=== PATIENT | female | born 1960 | race Caucasian/White ===

== ENCOUNTER 2021-03-20 19:49 | Inpatient (IN) | payer OTHER ==
[~2021-03-20] VITALS: Ht 167.6 cm; Wt 80.0 kg
[~2021-03-20 19:49] MED LIST: ALLO100T30 PO; AMLO-150 PO; ASPI81TA45 PO; LISI-167 PO; PRED10TA14 PO
--- NOTE | 2021-03-20 20:06 | NUR ---
pt bib [facility] for GLF yesterday and several today. pt is restless and claims it from restless leg sydrome. pt denies drug use at this time. pt has multiple bruises on her arms and legs at different stages of healing, pt also has an abcess on her left upper thigh. pt A&O to person and place, unable to get a good history from her. pt in gown, resting on gurney, and placed on continuous monitoring.
[2021-03-20] MEDS ORDERED: LORazepam 2 MG/ML, 1ML ONE ×2 (20:27→22:27)
[2021-03-20] MEDS ORDERED: LORazepam 2 MG/ML, 1ML IVPush ONE ×2 (20:30→22:30)
[2021-03-20] MEDS ORDERED: SODIUM CHLORIDE 0.9% 1,000ML IVBOLUS ONE ×2 (20:30→22:00)
[2021-03-20 20:45] LABS: BASOPHILS % (AUTO) 0 % (0-1); EOSINOPHILS % (AUTO) 0 % (1-7); LYMPHOCYTES % (AUTO) 9 % (22-44); MEAN CORPUSCULAR HEMOGLOBIN 28.5 pg (27.0-34.8); MEAN CORPUSCULAR HGB CONC 32.5 g/dL (32.4-35.8); MEAN PLATELET VOLUME 9.6 fL (7.4-10.4); MONOCYTES % (AUTO) 4 % (2-9); NEUTROPHILS % (AUTO) 87 % (42-75); PLATELET COUNT 166 x10^3/uL (130-400); RED BLOOD COUNT 4.22 x10^6/uL (3.82-5.3); RED CELL DISTRIBUTION WIDTH 17.5 % (9.6-15.2)
--- NOTE | 2021-03-20 20:50 | NUR ---
pt straight cathed per ERP for drug screen, due to pt's incontinence. pt tolerated procedure well. sitter at bedside, to help keep pt in bed due to pt's restlessness.
[2021-03-20 20:53] LABS: ALANINE AMINOTRANSFERASE 21 U/L (12-78); ANION GAP 10 mmol/L (5-15); CALCIUM 8.9 mg/dL (8.5-10.1); CHLORIDE 106 mmol/L (98-107); CREATININE 2.26 mg/dL (0.55-1.02)
[2021-03-20 21:03] LABS: ALKALINE PHOSPHATASE 78 U/L (45-117); BILIRUBIN,TOTAL 0.4 mg/dL (0.2-1.0); TOTAL PROTEIN 7.8 g/dL (6.4-8.2)
[2021-03-20 21:06] LABS: AMPHETAMINE SCREEN, URINE Negative (Negative); BARBITURATE SCREEN, URINE Negative (Negative); BENZODIAZEPINE SCREEN, URINE Negative (Negative); CANNABINOID SCREEN, URINE Negative (Negative); COCAINE SCREEN, URINE Negative (Negative); METHADONE SCREEN, URINE Negative (Negative); OPIATE SCREEN, URINE Negative (Negative)
[2021-03-20] MEDS ORDERED: MIDAZOLAM 1 MG/ML, 2ML ONE (21:26)
[2021-03-20] MEDS ORDERED: MIDAZOLAM 1 MG/ML, 2ML IVPush ONE (21:30)
--- NOTE | 2021-03-20 22:20 | NUR ---
pt still restless on the gureny, pt denies needs at this time.
[2021-03-20] MEDS ORDERED: HALOPERIDOL 5 MG/ML ONE (22:27)
[2021-03-20] MEDS ORDERED: THIAMINE 100 MG in SODIUM CHLORIDE 0.9% 50 ML IV ONE (22:30)
[2021-03-20] MEDS ORDERED: HALOPERIDOL 5 MG/ML IM ONE (22:30)
[2021-03-20] MEDS ORDERED: KETAMINE 10 MG/ML, 20ML ONE (23:16)
[2021-03-20] MEDS ORDERED: KETAMINE 10 MG/ML, 20ML IV ONE (23:30)
--- NOTE | 2021-03-20 23:31 | NUR ---
PT TAKEN TO CT, MEDICATED TO HOLD STILL AND BROUGHT BACK. PT PLACED ON CONTINUOUS MONITORING.
[2021-03-20 23:51] LABS: MICROSCOPIC NOT IND
--- NOTE | 2021-03-21 00:30 | NUR ---
PT RESTING ON GURNEY WITH SITTER, DENIES NEEDS AT THIS TIME.
[2021-03-21] MEDS: DIAZEPAM 5 MG TABLET PO SCH ×4 (01:30→19:30)
[2021-03-21] MEDS ORDERED: FOLIC ACID 1 MG TABLET PO ONE (01:30)
[2021-03-21] MEDS ORDERED: LORazepam 2 MG/ML, 1ML IV PRN ×4 (01:30)
--- NOTE | 2021-03-21 01:33 | NUR ---
TALKED WITH HOSPITALIST, ASKING FOR A KEREN VEST FOR PT TO KEEP HER IN BED. PROVIDER AGREED.
--- NOTE | 2021-03-21 01:34 | NUR ---
Pt to be admitted to [facility], room 426-1. Report called to BOAZ VELÁZQUEZ.
[2021-03-21 02:27] VITALS: BP 112/73
[2021-03-21 06:32] VITALS: BP 110/73
[2021-03-21] MEDS ORDERED: GABA800T5 PO (09:24)
[2021-03-21] MEDS ORDERED: CYCL10TA2 PO (09:24)
[2021-03-21] MEDS ORDERED: BUPR150T13 PO (09:24)
[2021-03-21] MEDS ORDERED: FAMO20TA7 PO (09:24)
[2021-03-21] MEDS ORDERED: AMIT100T PO (09:24)
[2021-03-21] MEDS ORDERED: ALLO300T PO (09:24)
[2021-03-21] MEDS ORDERED: ROPI1TAB4 PO (09:24)
[2021-03-21 09:45] LABS: BASOPHILS % (AUTO) 0 % (0-1); EOSINOPHILS % (AUTO) 1 % (1-7); LYMPHOCYTES % (AUTO) 12 % (22-44); MEAN CORPUSCULAR HEMOGLOBIN 28.6 pg (27.0-34.8); MEAN CORPUSCULAR HGB CONC 32.4 g/dL (32.4-35.8); MEAN PLATELET VOLUME 9.7 fL (7.4-10.4); MONOCYTES % (AUTO) 6 % (2-9); NEUTROPHILS % (AUTO) 81 % (42-75); PLATELET COUNT 134 x10^3/uL (130-400); RED CELL DISTRIBUTION WIDTH 17.4 % (9.6-15.2)
[2021-03-21] MEDS: MULTIVITAMINS/MINERALS TABLET PO SCH (09:47)
[2021-03-21 09:57] LABS: ALANINE AMINOTRANSFERASE 20 U/L (12-78); ALBUMIN 3.3 g/dL (3.4-5.0); CALCIUM 8.6 mg/dL (8.5-10.1); CREATININE 1.33 mg/dL (0.55-1.02)
[2021-03-21 09:59] LABS: ALKALINE PHOSPHATASE 69 U/L (45-117); BILIRUBIN,TOTAL 0.7 mg/dL (0.2-1.0); TOTAL PROTEIN 6.6 g/dL (6.4-8.2)
[2021-03-21 10:03] LABS: ANION GAP 7 mmol/L (5-15); CHLORIDE 113 mmol/L (98-107)
[2021-03-21 13:04] VITALS: BP 112/76
[2021-03-21] MEDS: LORazepam 2 MG/ML, 1ML IV PRN ×2 (15:50→23:38)
[2021-03-21] MEDS: BENZONATATE 100 MG CAPSULE PO SCH (20:24)
[2021-03-21] MEDS: ROPINIROLE 1MG TABLET PO SCH (20:24)
[2021-03-21] MEDS: BUPROPION SR 150 MG TABLET PO SCH (20:24)
[2021-03-21] MEDS: FAMOTIDINE 40 MG TABLET PO SCH (20:24)
[2021-03-21 20:35] VITALS: BP 111/75
[2021-03-22 00:56] VITALS: BP 115/71
[2021-03-22] MEDS: DIAZEPAM 5 MG TABLET PO SCH ×4 (01:30→19:29)
[2021-03-22 06:43] LABS: BASOPHILS % (AUTO) 0 % (0-1); EOSINOPHILS % (AUTO) 1 % (1-7); LYMPHOCYTES % (AUTO) 13 % (22-44); MEAN CORPUSCULAR HEMOGLOBIN 28.9 pg (27.0-34.8); MEAN CORPUSCULAR HGB CONC 32.8 g/dL (32.4-35.8); MEAN PLATELET VOLUME 9.7 fL (7.4-10.4); MONOCYTES % (AUTO) 6 % (2-9); NEUTROPHILS % (AUTO) 79 % (42-75); PLATELET COUNT 133 x10^3/uL (130-400); RED CELL DISTRIBUTION WIDTH 17.6 % (9.6-15.2)
[2021-03-22 06:54] LABS: CHLORIDE 109 mmol/L (98-107)
[2021-03-22 07:02] LABS: ANION GAP 7 mmol/L (5-15); CREATININE 0.83 mg/dL (0.55-1.02)
[2021-03-22] MEDS: ROPINIROLE 1MG TABLET PO SCH ×3 (08:36→20:47)
[2021-03-22] MEDS: BUPROPION SR 150 MG TABLET PO SCH ×2 (08:37→20:47)
[2021-03-22] MEDS: ALLOPURINOL 300 MG TABLET PO SCH (08:37)
[2021-03-22] MEDS: BENZONATATE 100 MG CAPSULE PO SCH ×3 (08:37→20:48)
[2021-03-22] MEDS: MULTIVITAMINS/MINERALS TABLET PO SCH (08:37)
[2021-03-22 10:11] VITALS: BP 117/76
[2021-03-22] MEDS: THIAMINE 100 MG in DEXTROSE 5% 50 ML IVPB SCH (10:23)
[2021-03-22 15:23] VITALS: BP 111/75
[2021-03-22] MEDS ORDERED: ACETAMINOPHEN 325 MG TABLET PO PRN (18:30)
[2021-03-22] MEDS: FAMOTIDINE 40 MG TABLET PO SCH (20:47)
[2021-03-22 21:40] VITALS: BP 112/74
[2021-03-23 00:34] VITALS: BP 111/71
[2021-03-23] MEDS: DIAZEPAM 5 MG TABLET PO SCH ×3 (01:21→14:55)
[2021-03-23 04:32] LABS: BASOPHILS % (AUTO) 0 % (0-1); EOSINOPHILS % (AUTO) 2 % (1-7); LYMPHOCYTES % (AUTO) 17 % (22-44); MEAN CORPUSCULAR HEMOGLOBIN 29.1 pg (27.0-34.8); MEAN PLATELET VOLUME 9.4 fL (7.4-10.4); MONOCYTES % (AUTO) 8 % (2-9); NEUTROPHILS % (AUTO) 73 % (42-75); PLATELET COUNT 157 x10^3/uL (130-400); RED BLOOD COUNT 3.82 x10^6/uL (3.82-5.3); RED CELL DISTRIBUTION WIDTH 17.5 % (9.6-15.2)
[2021-03-23 04:37] LABS: ANION GAP 7 mmol/L (5-15); CALCIUM 8.7 mg/dL (8.5-10.1); CHLORIDE 107 mmol/L (98-107); CREATININE 0.81 mg/dL (0.55-1.02)
[2021-03-23 07:45] VITALS: BP 117/78
[2021-03-23] MEDS: THIAMINE 100 MG in DEXTROSE 5% 50 ML IVPB SCH (09:00)
[2021-03-23] MEDS: ALLOPURINOL 300 MG TABLET PO SCH (09:00)
[2021-03-23] MEDS: MULTIVITAMINS/MINERALS TABLET PO SCH (09:00)
[2021-03-23] MEDS: BENZONATATE 100 MG CAPSULE PO SCH ×2 (09:00→14:55)
[2021-03-23] MEDS: BUPROPION SR 150 MG TABLET PO SCH (09:00)
[2021-03-23] MEDS: ROPINIROLE 1MG TABLET PO SCH ×2 (09:00→14:55)
[2021-03-23] MEDS ORDERED: GADOTERATE 10 MMOL/20ML SYR ONE (11:21)
[2021-03-23] MEDS ORDERED: FOLI1TAB32 PO (14:57)
[2021-03-23] MEDS ORDERED: THIA100T67 PO (14:57)
[2021-03-23] MEDS ORDERED: QUET50TA5 PO (16:20)
[2021-03-23 16:28] VITALS: BP 122/79
== END 2021-03-23 17:34 | disposition home or self-care (01) | DRG 70 ==
LOC: ED 22:53 → EDIP 03-21 00:52 → 4WST 03-21 01:59
PROVIDERS: ADMIT Family Medicine; ATTEND Internal Medicine
PROC: 0T9B70Z Drainage of Bladder with Drainage Device, Via Natural or Artificial Opening (ICD-10-PCS; principal; 2021-03-20)
DX: G93.41 Metabolic encephalopathy (principal); N17.0 Acute kidney failure with tubular necrosis; F10.139 Alcohol abuse with withdrawal, unspecified; M62.82 Rhabdomyolysis; D72.829 Elevated white blood cell count, unspecified; E86.0 Dehydration; Y90.9 Presence of alcohol in blood, level not specified; F17.210 Nicotine dependence, cigarettes, uncomplicated; W18.39XA Other fall on same level, initial encounter; F32.9 Major depressive disorder, single episode, unspecified; G47.00 Insomnia, unspecified; I10 Essential (primary) hypertension; Z80.1 Family history of malignant neoplasm of trachea, bronchus and lung; Y93.89 Activity, other specified; Y92.89 Other specified places as the place of occurrence of the external cause; Y99.8 Other external cause status; Z79.899 Other long term (current) drug therapy; Z80.0 Family history of malignant neoplasm of digestive organs; Z91.018 Allergy to other foods
CPT/HCPCS: 36415; 70450; 70551; 70552; 71045; 80048; 80053; 80307; 80320; 81003; 82550; 82962; 83605; 83735; 84100; 84145; 84443; 85025; 95819; 96361; 96372; 96374; 96375; 96376; 99285; G0378; J2250; J3411; A9575; G0480; J1630; J2060; J7030